=== PATIENT | female | born 2000 | race Caucasian/White ===

== ENCOUNTER 2019-02-05 20:46 | Emergency (ER) | payer BC ==
[~2019-02-05] VITALS: Ht 172.7 cm; Wt 79.5 kg
[2019-02-05 20:50] VITALS: BP 145/77; TEMP 98.3
[2019-02-05 21:16] LABS: STREP SCREEN NEGATIVE
[2019-02-05 21:23] VITALS: PULSE 79
== END 2019-02-05 21:22 | disposition home or self-care (01) ==
LOC: COL.ER 20:46
PROVIDERS: Nurse Practitioner
DX: J06.9 Acute upper respiratory infection, unspecified (principal)